=== PATIENT | male | born 1960 | race Caucasian/White ===

== ENCOUNTER → 2019-07-22 | Outpatient (CLI) | payer OTHER ==
--- NOTE | 2019-07-22 16:47 | Diagnostic Imaging Report ---
Bilateral knees, 3 views each Clinical indications: Bilateral knee pain Comparison: None Findings: Right knee: There is no radiographic evidence of acute fracture or dislocation. There is mild medial compartment joint space narrowing. Small patellar osteophytes are present. There is no right knee effusion. Left knee: There is no radiographic evidence of acute fracture or dislocation. There is moderate medial compartment and mild lateral compartment joint space narrowing of the left knee. Small patellar osteophytes are present. There is no left knee effusion. Impression: Mild right and moderate left knee osteoarthrosis without radiographic evidence of acute fracture or dislocation. Signed by: Luis Enrique Mcgee MD on 07/22/2019 4:45 PM
== END ==
LOC: RAD 15:34
PROVIDERS: ATTEND Internal Medicine
DX: M17.0 Bilateral primary osteoarthritis of knee (principal); M23.206 Derangement of unspecified meniscus due to old tear or injury, right knee